=== PATIENT | male | born 1945 | race Asian ===

== ENCOUNTER 2016-11-07 16:16 | Emergency (ER) | payer MEDICARE ==
[~2016-11-07] VITALS: Ht 157.5 cm; Wt 59.0 kg
[2016-11-07 17:03] LABS: Basophils # (auto) 0 uL; Basophils % (auto) 0.4 % (0.0-2.0); Eosinophils # (auto) 0 uL; Eosinophils % (auto) 0.3 % (0.0-7.0); Hematocrit 41.8 % (41.0-53.0); Hemoglobin 14.3 g/dL (13.5-17.5); Lymphocytes # (auto) 1.2 uL; Lymphocytes % (auto) 20.9 % (10.0-50.0); Mean Corpuscular Hemoglobin 29.8 pg (28.0-32.0); Mean Corpuscular Hgb Conc. 34.3 g/dL (32.0-36.0); Mean Corpuscular Volume 86.9 fL (80.0-100.0); Mean Platelet Volume 7.4 fL (7.4-10.4); Monocytes # (auto) 0.4 uL; Monocytes % (auto) 6.3 % (0.0-12.0); Neutrophils % (auto) 72.1 % (37.0-80.0); Platelet Count (auto) 209 10^3/uL (140-450); Red Cell Distribution Width 13.5 % (11.6-16.0); White Blood Cell 5.5 10^3/uL (4.4-10.8)
[2016-11-07 17:27] LABS: Albumin 4.1 g/dL (3.4-5.0); Anion Gap 8 (5-15); Aspartate Aminotransferase 11 U/L (15-37); Blood Urea Nitrogen 11 mg/dL (7-18); Calcium 8.6 mg/dL (8.5-10.1); Carbon Dioxide 27 mmol/L (21-32); Chloride 108 mmol/L (98-107); GFR African American 96 mL/min; GFR Non-African American 79 mL/min; Glucose 258 mg/dL (74-106); Potassium 3.9 mmol/L (3.5-5.1); Sodium 143 mmol/L (136-145)
[2016-11-07 17:32] LABS: Alkaline Phosphatase 66 U/L (45-117); Bilirubin, Total 0.3 mg/dL (0.2-1.0); Total Protein 7.4 g/dL (6.4-8.2)
[2016-11-08] MEDS ORDERED: metroNIDAZOLE 500 MG TAB PO ONE (05:30)
[2016-11-08] MEDS ORDERED: cefTRIAXone 1GM/50ML D5W 50 ML IV ONE (05:30)
[2016-11-08 05:59] LABS: Urine Bilirubin Negative (Negative); Urine Blood Negative /uL (Negative); Urine Color Yellow (Yellow); Urine Glucose Normal (Normal); Urine Ketone Negative (Negative); Urine Mucus FEW (None Seen); Urine Nitrite Negative (Negative); Urine RBC 1 /hpf (0 - 3); Urine Urobilinogen Normal (Negative)
[2016-11-08 06:14] VITALS: BP 131/80
== END 2016-11-08 06:31 | disposition home or self-care (01) ==
LOC: ER 16:17
DX: K52.9 Noninfective gastroenteritis and colitis, unspecified (principal); K80.20 Calculus of gallbladder without cholecystitis without obstruction; E11.9 Type 2 diabetes mellitus without complications; I10 Essential (primary) hypertension; R42 Dizziness and giddiness
CPT/HCPCS: 36415; 70450; 71010; 74176; 80053; 81001; 83690; 84484; 85025; 93005; 96365; 99285; J0696

== ENCOUNTER 2016-12-26 08:14 | Emergency (ER) | payer MEDICARE ==
[~2016-12-26] VITALS: Ht 165.1 cm; Wt 63.5 kg
[2016-12-26 09:01] LABS: Basophils # (auto) 0 uL; Basophils % (auto) 0.3 % (0.0-2.0); CONDITION Y; Eosinophils # (auto) 0 uL; Eosinophils % (auto) 0.2 % (0.0-7.0); Hematocrit 42.9 % (41.0-53.0); Hemoglobin 14.4 g/dL (13.5-17.5); Lymphocytes # (auto) 0.8 uL; Mean Corpuscular Hemoglobin 29.9 pg (28.0-32.0); Mean Corpuscular Hgb Conc. 33.7 g/dL (32.0-36.0); Mean Platelet Volume 7.3 fL (7.4-10.4); Monocytes # (auto) 0.2 uL; Monocytes % (auto) 4.2 % (0.0-12.0); Neutrophils # (auto) 4.8 uL; Neutrophils % (auto) 81.3 % (37.0-80.0); Platelet Count (auto) 203 10^3/uL (140-450); Red Cell Distribution Width 13.2 % (11.6-16.0); White Blood Cell 5.9 10^3/uL (4.4-10.8)
[2016-12-26 09:36] LABS: Albumin 3.8 g/dL (3.4-5.0); Alkaline Phosphatase 73 U/L (45-117); Anion Gap 10 (5-15); Aspartate Aminotransferase 14 U/L (15-37); BUN/Creatinine Ratio 13.2; Bilirubin, Total 0.4 mg/dL (0.2-1.0); Blood Urea Nitrogen 14 mg/dL (7-18); Calcium 8.7 mg/dL (8.5-10.1); Carbon Dioxide 24 mmol/L (21-32); Chloride 104 mmol/L (98-107); GFR African American 89 mL/min; GFR Non-African American 74 mL/min; Glucose 246 mg/dL (74-106); Magnesium 2.3 mg/dL (1.6-2.6); Potassium 4.2 mmol/L (3.5-5.1); Sodium 138 mmol/L (136-145); Total Protein 7.4 g/dL (6.4-8.2)
[2016-12-26] MEDS ORDERED: SODIUM CHLORIDE 0.9% 1,000 ML IV ONE (10:54)
[2016-12-26] MEDS ORDERED: InsuLIN REG 1unit/0.01ml Soln (100units/ml) IV ONE (11:00)
[2016-12-26 13:00] VITALS: BP 145/79
== END 2016-12-26 13:47 | disposition home or self-care (01) ==
LOC: ER 08:14 → EDBD 08:14 → ER 13:47
DX: E11.65 Type 2 diabetes mellitus with hyperglycemia (principal); I10 Essential (primary) hypertension; Z79.4 Long term (current) use of insulin
CPT/HCPCS: 36415; 71020; 80053; 81002; 82962; 83735; 84484; 85025; 93005; 94761; 96360; 99285; J1815; J7030

== ENCOUNTER → 2017-10-15 | Outpatient (CLI) | payer MEDICARE | END | disposition home or self-care (01) | LOC: LAB 08:49 | PROVIDERS: ATTEND Internal Medicine Gastroenterology | DX: R10.9 Unspecified abdominal pain (principal); I12.9 Hypertensive chronic kidney disease with stage 1 through stage 4 chronic kidney disease, or unspecified chronic kidney disease; E11.22 Type 2 diabetes mellitus with diabetic chronic kidney disease; N18.2 Chronic kidney disease, stage 2 (mild); Z79.4 Long term (current) use of insulin | CPT/HCPCS: 87045; 87493; 87899 ==

== ENCOUNTER → 2017-12-18 | Outpatient (CLI) | payer MEDICARE | END | disposition home or self-care (01) | LOC: LAB 09:41 | PROVIDERS: ATTEND Internal Medicine Gastroenterology | DX: R10.9 Unspecified abdominal pain (principal); I12.9 Hypertensive chronic kidney disease with stage 1 through stage 4 chronic kidney disease, or unspecified chronic kidney disease; E11.22 Type 2 diabetes mellitus with diabetic chronic kidney disease; N18.2 Chronic kidney disease, stage 2 (mild) | CPT/HCPCS: 87493 ==

== ENCOUNTER → 2019-08-03 | Outpatient (CLI) | payer MEDICARE ==
[2019-08-03 07:36] LABS: Urine WBC None Seen /hpf (0 - 3)
[2019-08-03 07:38] LABS: Basophils # (auto) 0 uL; Eosinophils # (auto) 0.2 uL; Eosinophils % (auto) 3.5 % (0.0-7.0); Hematocrit 37.4 % (41.0-53.0); Hemoglobin 12.3 g/dL (13.5-17.5); Lymphocytes # (auto) 1.4 uL; Lymphocytes % (auto) 29.9 % (10.0-50.0); Mean Corpuscular Hgb Conc. 32.9 g/dL (32.0-36.0); Mean Corpuscular Volume 91.3 fL (80.0-100.0); Monocytes # (auto) 0.3 uL; Neutrophils # (auto) 2.7 uL; Neutrophils % (auto) 58.6 % (37.0-80.0); Nucleated Red Blood Cells % 0.2 %; Platelet Count (auto) 150 10^3/uL (140-450); Red Cell Distribution Width 13.9 % (11.8-14.3); White Blood Cell 4.5 10^3/uL (4.4-10.8)
[2019-08-03 07:43] LABS: Urine Bacteria NONE SEEN /hpf (None Seen); Urine Blood Negative /uL (Negative); Urine Hyaline Cast MANY /lpf (0 - 2); Urine Mucus FEW (None Seen); Urine Specific Gravity 1.025 (1.001-1.035)
[2019-08-03 08:07] LABS: Albumin 3.5 g/dL (3.4-5.0); Calcium 8.5 mg/dL (8.5-10.1); Potassium 3.9 mmol/L (3.5-5.1)
[2019-08-03 08:12] LABS: BUN/Creatinine Ratio 10.7; Bilirubin, Total 0.3 mg/dL (0.2-1.0)
[2019-08-03 08:27] LABS: Prostate Specific Antigen 0.72 ng/mL (0.0-4.0)
[2019-08-03 08:28] LABS: Free T4 (Free Thyroxine) 0.95 ng/dL (0.89-1.76)
== END | disposition home or self-care (01) ==
LOC: LAB 07:19
PROVIDERS: ATTEND Internal Medicine
DX: E11.9 Type 2 diabetes mellitus without complications (principal); I10 Essential (primary) hypertension; E78.5 Hyperlipidemia, unspecified
CPT/HCPCS: 36415; 80053; 80061; 81001; 82043; 82607; 83036; 84153; 84439; 84443; 85025; 85652

== ENCOUNTER → 2019-09-05 | Outpatient (CLI) | payer MEDICARE | END | disposition home or self-care (01) | LOC: XY 08:24 | PROVIDERS: ATTEND Internal Medicine | DX: Z09 Encounter for follow-up examination after completed treatment for conditions other than malignant neoplasm (principal); I65.23 Occlusion and stenosis of bilateral carotid arteries; Z86.73 Personal history of transient ischemic attack (TIA), and cerebral infarction without residual deficits | CPT/HCPCS: 93886 ==

== ENCOUNTER → 2019-09-05 | Outpatient (CLI) | payer MEDICARE | END | disposition home or self-care (01) | LOC: LAB 08:34 | PROVIDERS: ATTEND Internal Medicine | DX: R59.9 Enlarged lymph nodes, unspecified (principal) | CPT/HCPCS: 87493 ==

== ENCOUNTER → 2019-09-08 | Outpatient (CLI) | payer MEDICARE ==
[2019-09-08 13:45] LABS: Basophils # (auto) 0.1 10 ^3/uL (0-0.2); Basophils % (auto) 0.9 % (0.0-2.0); Eosinophils # (auto) 0.1 10 ^3/uL (0-0.8); Hematocrit 38.4 % (41.0-53.0); Hemoglobin 13.2 g/dL (13.5-17.5); Lymphocytes # (auto) 1.4 10 ^3/uL (0.4-5.4); Lymphocytes % (auto) 22.2 % (10.0-50.0); Mean Corpuscular Hgb Conc. 34.3 g/dL (32.0-36.0); Mean Corpuscular Volume 90.6 fL (80.0-100.0); Monocytes # (auto) 0.3 10 ^3/uL (0-1.3); Monocytes % (auto) 5.7 % (0.0-12.0); Neutrophils # (auto) 4.2 10 ^3/uL (1.6-8.6); Neutrophils % (auto) 69.2 % (37.0-80.0); Nucleated Red Blood Cells % 0.1 %; Platelet Count (auto) 154 10^3/uL (140-450); Red Blood Cells 4.24 10^6/uL (4.5-5.90); Red Cell Distribution Width 13.8 % (11.8-14.3); White Blood Cell 6.1 10^3/uL (4.4-10.8)
[2019-09-08 14:02] LABS: Albumin 3.6 g/dL (3.4-5.0); BUN/Creatinine Ratio 12.1; Calcium 8.7 mg/dL (8.5-10.1); Magnesium 2.2 mg/dL (1.6-2.6); Potassium 3.9 mmol/L (3.5-5.1)
[2019-09-08 14:05] LABS: Bilirubin, Total 0.3 mg/dL (0.2-1.0); Total Protein 7.5 g/dL (6.4-8.2)
== END | disposition home or self-care (01) ==
LOC: LAB 13:19
PROVIDERS: ATTEND Internal Medicine
DX: A04.72 Enterocolitis due to Clostridium difficile, not specified as recurrent (principal); D64.9 Anemia, unspecified; E11.9 Type 2 diabetes mellitus without complications
CPT/HCPCS: 36415; 80053; 83540; 83735; 85025

== ENCOUNTER → 2019-12-02 | Day surgery (SDC) | payer MEDICARE ==
[2019-11-30 11:42] LABS: Basophils # (auto) 0 10 ^3/uL (0-0.2); Basophils % (auto) 0.7 % (0.0-2.0); Eosinophils # (auto) 0.1 10 ^3/uL (0-0.8); Eosinophils % (auto) 2.1 % (0.0-7.0); Hematocrit 38.2 % (41.0-53.0); Hemoglobin 12.7 g/dL (13.5-17.5); Lymphocytes # (auto) 1.3 10 ^3/uL (0.4-5.4); Lymphocytes % (auto) 21.4 % (10.0-50.0); Mean Corpuscular Hemoglobin 29.7 pg (28.0-32.0); Mean Corpuscular Hgb Conc. 33.1 g/dL (32.0-36.0); Mean Corpuscular Volume 89.7 fL (80.0-100.0); Monocytes # (auto) 0.3 10 ^3/uL (0-1.3); Monocytes % (auto) 5.4 % (0.0-12.0); Neutrophils # (auto) 4.1 10 ^3/uL (1.6-8.6); Neutrophils % (auto) 70.4 % (37.0-80.0); Platelet Count (auto) 168 10^3/uL (140-450); Red Blood Cells 4.26 10^6/uL (4.5-5.90); Red Cell Distribution Width 13.4 % (11.8-14.3); White Blood Cell 5.9 10^3/uL (4.4-10.8)
[2019-11-30 11:59] LABS: INR 0.95 (0.9-1.15); Partial Thromboplastin Time 25.9 sec (23.64-32.05)
[~2019-12-02] VITALS: Ht 160 cm; Wt 61.2 kg
[~2019-12-02] MED LIST: AMLO10TA13 PO; FLUMAZENIL 0.1 MG/ML INJ 10ML MDV IV ONE; LISI10TA6 PO; METF-370 PO; METO25TA5 PO; NALOXONE HCL 0.4 MG/ML VIAL ONE; PRAV20TA3 PO; SODIUM CHLORIDE LOCK 10 ML ONE; diphenhdrAMINE HCL 50 MG/1 ML VL ONE
[2019-12-02] MEDS: MIDAZOLAM HCL 5 MG/ML-1ML VIAL ONE ×3 (12:19→12:25)
[2019-12-02] MEDS: fentaNYL CITRATE 100 MCG/2 ML VL ONE ×2 (12:19→12:22)
[2019-12-02 13:13] VITALS: BP 139/75
== END | disposition home or self-care (01) ==
LOC: GI 10:35
PROVIDERS: ATTEND Internal Medicine Gastroenterology
DX: Z12.11 Encounter for screening for malignant neoplasm of colon (principal); D12.3 Benign neoplasm of transverse colon; K57.30 Diverticulosis of large intestine without perforation or abscess without bleeding; K64.9 Unspecified hemorrhoids; A04.72 Enterocolitis due to Clostridium difficile, not specified as recurrent; E11.9 Type 2 diabetes mellitus without complications; Z98.890 Other specified postprocedural states; Z86.010 Personal history of colon polyps; Z11.59 Encounter for screening for other viral diseases
CPT/HCPCS: 36415; 45385; 82962; 85025; 85610; 85730; 88305; J2250; J3010; J7030; U0003; 99152

== ENCOUNTER → 2019-12-15 | Outpatient (CLI) | payer MEDICARE ==
[~2019-12-15] MED LIST changes: -FLUMAZENIL 0.1 MG/ML INJ 10ML MDV IV ONE; -NALOXONE HCL 0.4 MG/ML VIAL ONE; -SODIUM CHLORIDE LOCK 10 ML ONE; -diphenhdrAMINE HCL 50 MG/1 ML VL ONE
[2019-12-15 09:44] LABS: Basophils # (auto) 0 10 ^3/uL (0-0.2); Basophils % (auto) 0.7 % (0.0-2.0); Eosinophils # (auto) 0.1 10 ^3/uL (0-0.8); Eosinophils % (auto) 2.6 % (0.0-7.0); Hematocrit 38.2 % (41.0-53.0); Hemoglobin 12.8 g/dL (13.5-17.5); Lymphocytes # (auto) 1.3 10 ^3/uL (0.4-5.4); Mean Corpuscular Hemoglobin 30.1 pg (28.0-32.0); Mean Corpuscular Hgb Conc. 33.5 g/dL (32.0-36.0); Mean Corpuscular Volume 89.8 fL (80.0-100.0); Monocytes # (auto) 0.3 10 ^3/uL (0-1.3); Monocytes % (auto) 6.9 % (0.0-12.0); Neutrophils # (auto) 3.2 10 ^3/uL (1.6-8.6); Neutrophils % (auto) 63.8 % (37.0-80.0); Platelet Count (auto) 175 10^3/uL (140-450); Red Blood Cells 4.25 10^6/uL (4.5-5.90); Red Cell Distribution Width 13.5 % (11.8-14.3); White Blood Cell 4.9 10^3/uL (4.4-10.8)
== END | disposition home or self-care (01) ==
LOC: LAB 08:28
PROVIDERS: ATTEND Internal Medicine
DX: E11.22 Type 2 diabetes mellitus with diabetic chronic kidney disease (principal); N18.9 Chronic kidney disease, unspecified; D64.9 Anemia, unspecified
CPT/HCPCS: 36415; 82607; 83036; 83540; 85025

== ENCOUNTER → 2020-03-28 | Day surgery (SDC) | payer MEDICARE ==
[2020-03-22 10:19] LABS: Basophils # (auto) 0 10 ^3/uL (0-0.2); Basophils % (auto) 0.7 % (0.0-2.0); Eosinophils # (auto) 0.1 10 ^3/uL (0-0.8); Hematocrit 36.1 % (41.0-53.0); Hemoglobin 12.4 g/dL (13.5-17.5); Lymphocytes # (auto) 1.2 10 ^3/uL (0.4-5.4); Lymphocytes % (auto) 27.3 % (10.0-50.0); Mean Corpuscular Hemoglobin 30.7 pg (28.0-32.0); Mean Corpuscular Hgb Conc. 34.3 g/dL (32.0-36.0); Mean Corpuscular Volume 89.3 fL (80.0-100.0); Monocytes # (auto) 0.3 10 ^3/uL (0-1.3); Monocytes % (auto) 5.8 % (0.0-12.0); Neutrophils # (auto) 2.8 10 ^3/uL (1.6-8.6); Neutrophils % (auto) 64.2 % (37.0-80.0); Platelet Count (auto) 183 10^3/uL (140-450); Red Blood Cells 4.05 10^6/uL (4.5-5.90); Red Cell Distribution Width 14.2 % (11.8-14.3); White Blood Cell 4.3 10^3/uL (4.4-10.8)
[2020-03-22 10:31] LABS: INR 0.94 (0.9-1.15); Partial Thromboplastin Time 25.9 sec (23.0-31.2)
[~2020-03-28] VITALS: Ht 154.9 cm; Wt 61.2 kg
[~2020-03-28] MED LIST changes: +ASPI-543 PO; +CHOL20009 PO; +CLON0.5T10 PO; +ESCI5TAB PO; +FERR-7 PO; +GLIP-110 PO; +LIDOCAINE VISCOUS 2% 15ML UD ONE; +LISI-648 PO; -LISI10TA6 PO; +MISC4CAP PO; +PIOG1TAB36 PO; +SODIUM CHLORIDE LOCK 10 ML ONE; +diphenhdrAMINE HCL 50 MG/1 ML VL ONE
[2020-03-28] MEDS: fentaNYL CITRATE 100 MCG/2 ML VL ONE ×3 (15:29→15:34)
[2020-03-28] MEDS: MIDAZOLAM HCL 5 MG/ML-1ML VIAL ONE ×3 (15:29→15:34)
[2020-03-29 16:10] VITALS: BP 117/60
== END | disposition home or self-care (01) ==
LOC: GI 13:22
PROVIDERS: ATTEND Internal Medicine Gastroenterology
DX: R10.13 Epigastric pain (principal); K29.70 Gastritis, unspecified, without bleeding; K31.89 Other diseases of stomach and duodenum; K25.9 Gastric ulcer, unspecified as acute or chronic, without hemorrhage or perforation; K44.9 Diaphragmatic hernia without obstruction or gangrene; K22.10 Ulcer of esophagus without bleeding; K31.7 Polyp of stomach and duodenum; D64.9 Anemia, unspecified; E11.9 Type 2 diabetes mellitus without complications; Z98.890 Other specified postprocedural states; Z20.828 Contact with and (suspected) exposure to other viral communicable diseases
CPT/HCPCS: 36415; 43239; 82962; 85025; 85610; 85730; 88305; 88342; J2250; J3010; J7030; U0003

== ENCOUNTER → 2020-03-30 | Outpatient (CLI) | payer MEDICARE ==
[~2020-03-30] MED LIST changes: -LIDOCAINE VISCOUS 2% 15ML UD ONE; -SODIUM CHLORIDE LOCK 10 ML ONE; -diphenhdrAMINE HCL 50 MG/1 ML VL ONE
[2020-03-30 08:12] LABS: Basophils # (auto) 0 10 ^3/uL (0-0.2); Basophils % (auto) 0.8 % (0.0-2.0); Eosinophils # (auto) 0.1 10 ^3/uL (0-0.8); Eosinophils % (auto) 2.5 % (0.0-7.0); Hematocrit 38.1 % (41.0-53.0); Hemoglobin 12.7 g/dL (13.5-17.5); Lymphocytes # (auto) 1.4 10 ^3/uL (0.4-5.4); Lymphocytes % (auto) 31.4 % (10.0-50.0); Mean Corpuscular Hemoglobin 29.9 pg (28.0-32.0); Mean Corpuscular Hgb Conc. 33.4 g/dL (32.0-36.0); Mean Corpuscular Volume 89.6 fL (80.0-100.0); Monocytes # (auto) 0.3 10 ^3/uL (0-1.3); Monocytes % (auto) 5.8 % (0.0-12.0); Neutrophils # (auto) 2.7 10 ^3/uL (1.6-8.6); Neutrophils % (auto) 59.5 % (37.0-80.0); Nucleated Red Blood Cells % 0.1 %; Platelet Count (auto) 176 10^3/uL (140-450); Red Blood Cells 4.25 10^6/uL (4.5-5.90); Red Cell Distribution Width 14.3 % (11.8-14.3); White Blood Cell 4.5 10^3/uL (4.4-10.8)
[2020-03-30 08:42] LABS: Albumin 3.7 g/dL (3.4-5.0); Calcium 8.7 mg/dL (8.5-10.1); Potassium 3.9 mmol/L (3.5-5.1)
[2020-03-30 08:46] LABS: BUN/Creatinine Ratio 15.7; Bilirubin, Total 0.3 mg/dL (0.2-1.0); Total Protein 7.2 g/dL (6.4-8.2)
== END | disposition home or self-care (01) ==
LOC: LAB 07:54
PROVIDERS: ATTEND Internal Medicine
DX: E11.9 Type 2 diabetes mellitus without complications (principal); D64.9 Anemia, unspecified; E78.1 Pure hyperglyceridemia
CPT/HCPCS: 36415; 80053; 82607; 83036; 83540; 84478; 85025

== ENCOUNTER → 2020-08-02 | Outpatient (CLI) | payer MEDICARE ==
[~2020-08-02] MED LIST changes: +AMLO-496 PO; -AMLO10TA13 PO
[2020-08-02 08:44] LABS: Urine Bacteria NONE SEEN /hpf (None Seen); Urine Blood Negative /uL (Negative); Urine Hyaline Cast FEW /lpf (0 - 2); Urine Mucus FEW (None Seen); Urine Specific Gravity 1.025 (1.001-1.035); Urine WBC <1 /hpf (0 - 3)
[2020-08-02 08:45] LABS: Basophils # (auto) 0 10 ^3/uL (0-0.2); Basophils % (auto) 0.7 % (0.0-2.0); Eosinophils # (auto) 0.1 10 ^3/uL (0-0.8); Eosinophils % (auto) 2.2 % (0.0-7.0); Hematocrit 39.3 % (41.0-53.0); Hemoglobin 13.5 g/dL (13.5-17.5); Lymphocytes # (auto) 1.3 10 ^3/uL (0.4-5.4); Lymphocytes % (auto) 28.8 % (10.0-50.0); Mean Corpuscular Hemoglobin 30.4 pg (28.0-32.0); Mean Corpuscular Hgb Conc. 34.3 g/dL (32.0-36.0); Mean Corpuscular Volume 88.8 fL (80.0-100.0); Monocytes # (auto) 0.3 10 ^3/uL (0-1.3); Monocytes % (auto) 6.4 % (0.0-12.0); Neutrophils # (auto) 2.8 10 ^3/uL (1.6-8.6); Neutrophils % (auto) 61.9 % (37.0-80.0); Nucleated Red Blood Cells % 0.1 %; Platelet Count (auto) 158 10^3/uL (140-450); Red Blood Cells 4.43 10^6/uL (4.5-5.90); Red Cell Distribution Width 13.9 % (11.8-14.3); White Blood Cell 4.5 10^3/uL (4.4-10.8)
[2020-08-02 09:10] LABS: Calcium 8.6 mg/dL (8.5-10.1); Potassium 3.4 mmol/L (3.5-5.1)
[2020-08-02 09:22] LABS: Albumin 3.6 g/dL (3.4-5.0); BUN/Creatinine Ratio 14.7; Bilirubin, Total 0.5 mg/dL (0.2-1.0); Total Protein 7.5 g/dL (6.4-8.2)
[2020-08-02 09:25] LABS: Free T4 (Free Thyroxine) 1.06 ng/dL (0.89-1.76)
[2020-08-02 09:27] LABS: Prostate Specific Antigen 0.88 ng/mL (0.0-4.0)
== END | disposition home or self-care (01) ==
LOC: LAB 08:03
PROVIDERS: ATTEND Internal Medicine
DX: Z12.5 Encounter for screening for malignant neoplasm of prostate (principal); E11.9 Type 2 diabetes mellitus without complications; I10 Essential (primary) hypertension
CPT/HCPCS: 36415; 80053; 80061; 81001; 82043; 82607; 83036; 84153; 84439; 84443; 85025; 85652; 87493

== ENCOUNTER → 2020-08-27 | Outpatient (CLI) | payer MEDICARE | END | disposition home or self-care (01) | LOC: LAB 12:23 | PROVIDERS: ATTEND Internal Medicine Gastroenterology | DX: A04.71 Enterocolitis due to Clostridium difficile, recurrent (principal) | CPT/HCPCS: 87493 ==

== ENCOUNTER → 2020-10-01 | Outpatient (CLI) | payer MEDICARE | END | disposition home or self-care (01) | LOC: LAB 09:20 | PROVIDERS: ATTEND Internal Medicine | DX: E87.6 Hypokalemia (principal); R53.83 Other fatigue; Z86.39 Personal history of other endocrine, nutritional and metabolic disease | CPT/HCPCS: 36415; 83540; 84132 ==

== ENCOUNTER → 2021-01-01 | Outpatient (CLI) | payer MEDICARE ==
[~2021-01-01] MED LIST changes: -LISI-648 PO; +LISI-716 PO
[2021-01-01 09:01] LABS: Albumin 3.7 g/dL (3.4-5.0); Calcium 8.5 mg/dL (8.5-10.1); Potassium 3.5 mmol/L (3.5-5.1)
[2021-01-01 09:07] LABS: BUN/Creatinine Ratio 11.9; Bilirubin, Total 0.4 mg/dL (0.2-1.0); Total Protein 7.2 g/dL (6.4-8.2)
== END | disposition home or self-care (01) ==
LOC: LAB 07:46
PROVIDERS: ATTEND Internal Medicine
DX: E11.9 Type 2 diabetes mellitus without complications (principal)
CPT/HCPCS: 36415; 80053; 83036

== ENCOUNTER 2021-04-08 18:45 | Emergency (ER) | payer MEDICARE ==
[~2021-04-08] VITALS: Ht 162.6 cm; Wt 61.2 kg
[2021-04-08 19:27] LABS: Basophils # (auto) 0 10 ^3/uL (0-0.2); Basophils % (auto) 0.5 % (0.0-2.0); Eosinophils # (auto) 0.1 10 ^3/uL (0-0.8); Eosinophils % (auto) 1.5 % (0.0-7.0); Hematocrit 42.1 % (41.0-53.0); Hemoglobin 14.2 g/dL (13.5-17.5); Lymphocytes # (auto) 1.2 10 ^3/uL (0.4-5.4); Lymphocytes % (auto) 27.2 % (10.0-50.0); Mean Corpuscular Hemoglobin 31.3 pg (28.0-32.0); Mean Corpuscular Hgb Conc. 33.9 g/dL (32.0-36.0); Mean Corpuscular Volume 92.5 fL (80.0-100.0); Monocytes # (auto) 0.3 10 ^3/uL (0-1.3); Monocytes % (auto) 6.2 % (0.0-12.0); Neutrophils # (auto) 2.8 10 ^3/uL (1.6-8.6); Neutrophils % (auto) 64.6 % (37.0-80.0); Nucleated Red Blood Cells % 0.1 %; Red Blood Cells 4.55 10^6/uL (4.5-5.90); Red Cell Distribution Width 14.1 % (11.8-14.3); White Blood Cell 4.4 10^3/uL (4.4-10.8)
[2021-04-08] MEDS ORDERED: MECLIZINE HCL 25 MG TAB PO ONE (20:15)
[2021-04-08] MEDS ORDERED: SODIUM CHLORIDE 0.9% 1,000 ML IV ONE (20:15)
[2021-04-08 20:41] LABS: Alanine Aminotransferase 27 U/L (16-61); Albumin 3.5 g/dL (3.4-5.0); Anion Gap 2 (5-15); Blood Urea Nitrogen 22 mg/dL (7-18); Calcium 8.8 mg/dL (8.5-10.1); Carbon Dioxide 27 mmol/L (21-32); Chloride 110 mmol/L (98-107); Glucose 183 mg/dL (74-106); Potassium 4.4 mmol/L (3.5-5.1); Sodium 139 mmol/L (136-145)
[2021-04-08 20:46] LABS: Alkaline Phosphatase 62 U/L (45-117); Aspartate Aminotransferase 19 U/L (15-37); BUN/Creatinine Ratio 15.5; Bilirubin, Total 0.3 mg/dL (0.2-1.0); GFR African American 63 mL/min; GFR Non-African American 52 mL/min; Total Protein 7.2 g/dL (6.4-8.2)
[2021-04-09 03:23] VITALS: BP 147/65
== END 2021-04-09 03:57 | disposition home or self-care (01) ==
LOC: ER 18:48
DX: R42 Dizziness and giddiness (principal); R51.9 Headache, unspecified; E11.9 Type 2 diabetes mellitus without complications; I10 Essential (primary) hypertension; E78.5 Hyperlipidemia, unspecified; F41.9 Anxiety disorder, unspecified; H54.40 Blindness, one eye, unspecified eye; Z79.84 Long term (current) use of oral hypoglycemic drugs; Z79.82 Long term (current) use of aspirin; Z79.899 Other long term (current) drug therapy; Z86.73 Personal history of transient ischemic attack (TIA), and cerebral infarction without residual deficits
CPT/HCPCS: 36415; 70450; 80053; 83880; 84484; 85025; 93005; 96360; 99285; J7030; J8597

== ENCOUNTER 2021-04-11 13:30 | Inpatient (IN) | payer MEDICARE ==
[~2021-04-11] VITALS: Ht 162.6 cm; Wt 64.2 kg
[2021-04-11] MEDS ORDERED: LORazepam 2MG/ML-1ML VIAL IV ONE (13:45)
[2021-04-11 14:09] LABS: Basophils # (auto) 0 10 ^3/uL (0-0.2); Basophils % (auto) 0.5 % (0.0-2.0); Eosinophils # (auto) 0 10 ^3/uL (0-0.8); Eosinophils % (auto) 0.9 % (0.0-7.0); Hematocrit 39.4 % (41.0-53.0); Lymphocytes # (auto) 0.7 10 ^3/uL (0.4-5.4); Lymphocytes % (auto) 15.4 % (10.0-50.0); Mean Corpuscular Hemoglobin 30.6 pg (28.0-32.0); Mean Corpuscular Volume 92.7 fL (80.0-100.0); Monocytes # (auto) 0.2 10 ^3/uL (0-1.3); Monocytes % (auto) 5.1 % (0.0-12.0); Neutrophils # (auto) 3.5 10 ^3/uL (1.6-8.6); Neutrophils % (auto) 78.1 % (37.0-80.0); Nucleated Red Blood Cells % 0.1 %; Red Blood Cells 4.25 10^6/uL (4.5-5.90); Red Cell Distribution Width 13.9 % (11.8-14.3); White Blood Cell 4.5 10^3/uL (4.4-10.8)
[2021-04-11 14:27] LABS: Albumin 3.1 g/dL (3.4-5.0); Anion Gap 8 (5-15); Blood Urea Nitrogen 17 mg/dL (7-18); Calcium 8.5 mg/dL (8.5-10.1); Carbon Dioxide 24 mmol/L (21-32); Chloride 108 mmol/L (98-107); Glucose 302 mg/dL (74-106); Sodium 140 mmol/L (136-145)
[2021-04-11 14:30] LABS: Alanine Aminotransferase 23 U/L (16-61); Aspartate Aminotransferase 17 U/L (15-37); BUN/Creatinine Ratio 11.4; GFR African American 59 mL/min; GFR Non-African American 49 mL/min
[2021-04-11 14:35] LABS: Alkaline Phosphatase 57 U/L (45-117); Bilirubin, Total 0.3 mg/dL (0.2-1.0); Total Protein 6.6 g/dL (6.4-8.2)
[2021-04-11] MEDS ORDERED: MORPHINE SULFATE INJECTION 2 MG/ML SYRG IV PRN ×3 (16:45)
[2021-04-11] MEDS ORDERED: ACETAMINOPHEN 325 MG TAB PO PRN (16:45)
[2021-04-11] MEDS ORDERED: ONDANSETRON HCL 4 MG/2 ML VIAL IV PRN (16:45)
[2021-04-11] MEDS ORDERED: DOCUSATE SOD 100 MG CAP PO PRN (16:45)
[2021-04-11] MEDS ORDERED: hydrALAZINE HCL 20 MG/ML VL IV PRN (16:45)
[2021-04-11] MEDS ORDERED: LACTATED RINGER'S 1,000 ML IV ONE (16:45)
[2021-04-11] MEDS ORDERED: BENAZEPRIL HCL 10 MG TAB PO ONE (16:45)
[2021-04-11] MEDS ORDERED: NITROGLYCERIN 0.4 MG SL TAB SL PRN ×2 (16:45)
[2021-04-11] MEDS ORDERED: NIFEdipine ER 30 MG TAB PO ONE (16:45)
[2021-04-11] MEDS ORDERED: MECLIZINE HCL 25 MG TAB PO ONE (16:45)
[2021-04-11] MEDS ORDERED: DEXTROSE (50%) 50ML SYRG IV PRN (16:45)
[2021-04-11] MEDS ORDERED: ALUM & MAG HYDROX-SIMETH LIQ(MAALOX) 30 ML PO PRN (16:45)
[2021-04-11] MEDS ORDERED: HYDROcodone-ACET 5/325MG TAB PO PRN (16:45)
[2021-04-11] MEDS ORDERED: CITALOPRAM HYDROBR 20 MG TAB PO ONE (17:00)
[2021-04-11] MEDS ORDERED: METOPROLOL SUCCINATE XL 50 MG TAB PO ONE (17:00)
[2021-04-11 17:13] LABS: Urine WBC None Seen /hpf (0 - 3)
[2021-04-11] MEDS ORDERED: SUCRALFATE 1 GM/10 ML ORAL SUSP PO ONE (17:15)
[2021-04-11] MEDS ORDERED: PANTOPRAZOLE 40 MG/10 ML VIAL INJ IV ONE (17:15)
[2021-04-11 17:27] LABS: Urine Bacteria NONE SEEN /hpf (None Seen); Urine Blood Negative /uL (Negative); Urine Mucus FEW (None Seen); Urine Specific Gravity 1.013 (1.001-1.035)
[2021-04-11 17:45] LABS: Alcohol, Urine < 3.0 mg/dL (0-10); Amphetamine Screen, Urine NEGATIVE (NEGATIVE); Barbiturate Scree,Urine NEGATIVE (NEGATIVE); Benzodiazephine Screen, Urine NEGATIVE (NEGATIVE); Cannabinoid Screen, Urine NEGATIVE (NEGATIVE); Cocaine Screen, Urine NEGATIVE (NEGATIVE)
[2021-04-11 17:47] LABS: Opiate Scree,Urine NEGATIVE (NEGATIVE); Phencyclidine Screen, Urine NEGATIVE (NEGATIVE)
[2021-04-11] MEDS: ACCU-CHEK COMFORT CURVE STRIP VI SCH ×2 (18:12→23:08)
[2021-04-11] MEDS: SODIUM CHLORIDE 0.9% 1,000 ML IV SCH (18:50)
[2021-04-11] MEDS: InsuLIN REG 1unit/0.01ml Soln (100units/ml) SC SCH ×2 (19:18→23:10)
[2021-04-11] MEDS ORDERED: MECLIZINE HCL 25 MG TAB PO PRN (22:45)
[2021-04-11] MEDS: PRAVASTATIN SODIUM 20 MG TAB PO SCH (23:07)
[2021-04-11] MEDS: ASPirin-EC 81 mg tab PO SCH (23:07)
[2021-04-11] MEDS: SUCRALFATE 1 GM/10 ML ORAL SUSP PO SCH (23:08)
[2021-04-12 05:00] VITALS: BP 117/78
[2021-04-12] MEDS: SODIUM CHLORIDE 0.9% 1,000 ML IV SCH ×3 (06:05→15:15)
[2021-04-12] MEDS: InsuLIN REG 1unit/0.01ml Soln (100units/ml) SC SCH ×4 (06:36→22:40)
[2021-04-12] MEDS: SUCRALFATE 1 GM/10 ML ORAL SUSP PO SCH ×4 (06:36→21:39)
[2021-04-12] MEDS: ACCU-CHEK COMFORT CURVE STRIP VI SCH ×4 (06:36→21:40)
[2021-04-12 09:00] VITALS: BP 139/60
[2021-04-12] MEDS: NIFEdipine ER 30 MG TAB PO SCH (10:00)
[2021-04-12] MEDS: PANTOPRAZOLE 40 MG/10 ML VIAL INJ IV SCH (10:00)
[2021-04-12] MEDS: METOPROLOL SUCCINATE XL 50 MG TAB PO SCH (10:00)
[2021-04-12] MEDS: CITALOPRAM HYDROBR 20 MG TAB PO SCH (10:00)
[2021-04-12] MEDS: ENOXAPARIN SOD 40 MG/0.4 ML SYRINGE SC SCH (10:00)
[2021-04-12] MEDS: BENAZEPRIL HCL 10 MG TAB PO SCH (10:00)
[2021-04-12 13:00] VITALS: BP 143/68
[2021-04-12 17:00] VITALS: BP 137/71
[2021-04-12] MEDS ORDERED: ALPRAZolam 0.25 MG TAB PO PRN (18:00)
[2021-04-12] MEDS ORDERED: ALPRAZolam 0.25 MG TAB PO ONE (18:00)
[2021-04-12] MEDS: LORazepam 0.5 MG TAB PO PRN (18:30)
[2021-04-12] MEDS: clonazePAM 0.5 MG TAB PO SCH (21:39)
[2021-04-12] MEDS: PRAVASTATIN SODIUM 20 MG TAB PO SCH (21:40)
[2021-04-12] MEDS: ASPirin-EC 81 mg tab PO SCH (21:40)
[2021-04-12 22:59] VITALS: BP 125/61
[2021-04-13 05:22] VITALS: BP 121/73
[2021-04-13] MEDS: LORazepam 0.5 MG TAB PO PRN (06:08)
[2021-04-13 06:17] LABS: Basophils # (auto) 0 10 ^3/uL (0-0.2); Basophils % (auto) 0.7 % (0.0-2.0); Eosinophils # (auto) 0.2 10 ^3/uL (0-0.8); Eosinophils % (auto) 3.4 % (0.0-7.0); Hematocrit 38.6 % (41.0-53.0); Lymphocytes # (auto) 1.3 10 ^3/uL (0.4-5.4); Lymphocytes % (auto) 27.7 % (10.0-50.0); Mean Corpuscular Hemoglobin 31.1 pg (28.0-32.0); Mean Corpuscular Hgb Conc. 33.8 g/dL (32.0-36.0); Mean Corpuscular Volume 92.2 fL (80.0-100.0); Monocytes # (auto) 0.3 10 ^3/uL (0-1.3); Monocytes % (auto) 6.8 % (0.0-12.0); Neutrophils % (auto) 61.4 % (37.0-80.0); Nucleated Red Blood Cells % 0.1 %; Red Blood Cells 4.18 10^6/uL (4.5-5.90); Red Cell Distribution Width 14.3 % (11.8-14.3); White Blood Cell 4.9 10^3/uL (4.4-10.8)
[2021-04-13 06:35] LABS: BUN/Creatinine Ratio 12.9; Potassium 3.5 mmol/L (3.5-5.1)
[2021-04-13] MEDS: InsuLIN REG 1unit/0.01ml Soln (100units/ml) SC SCH ×2 (07:00→12:05)
[2021-04-13] MEDS: SUCRALFATE 1 GM/10 ML ORAL SUSP PO SCH ×2 (07:00→12:04)
[2021-04-13] MEDS: ACCU-CHEK COMFORT CURVE STRIP VI SCH ×2 (07:00→12:04)
[2021-04-13 09:00] VITALS: BP 136/67
[2021-04-13] MEDS: ENOXAPARIN SOD 40 MG/0.4 ML SYRINGE SC SCH (10:00)
[2021-04-13] MEDS: PANTOPRAZOLE 40 MG/10 ML VIAL INJ IV SCH (10:00)
[2021-04-13] MEDS: METOPROLOL SUCCINATE XL 50 MG TAB PO SCH (10:03)
[2021-04-13] MEDS: NIFEdipine ER 30 MG TAB PO SCH (10:04)
[2021-04-13] MEDS: clonazePAM 0.5 MG TAB PO SCH (10:04)
[2021-04-13] MEDS: BENAZEPRIL HCL 10 MG TAB PO SCH (10:05)
[2021-04-13] MEDS: CITALOPRAM HYDROBR 20 MG TAB PO SCH (10:05)
[2021-04-13 12:19] VITALS: BP 126/71
== END 2021-04-13 17:00 | disposition home or self-care (01) | DRG 149 ==
LOC: EDBD 13:30 → ER 13:30 → TELE 16:35 → TELE-CENTR 20:41
PROVIDERS: ADMIT Hospitalist; ATTEND Internal Medicine
DX: H81.10 Benign paroxysmal vertigo, unspecified ear (principal); N17.0 Acute kidney failure with tubular necrosis; R53.1 Weakness; I13.10 Hypertensive heart and chronic kidney disease without heart failure, with stage 1 through stage 4 chronic kidney disease, or unspecified chronic kidney disease; N18.31 Chronic kidney disease, stage 3a; D69.6 Thrombocytopenia, unspecified; K21.9 Gastro-esophageal reflux disease without esophagitis; E66.9 Obesity, unspecified; E11.22 Type 2 diabetes mellitus with diabetic chronic kidney disease; F32.A Depression, unspecified; Z20.822 Contact with and (suspected) exposure to COVID-19; E78.5 Hyperlipidemia, unspecified; F41.1 Generalized anxiety disorder; I65.21 Occlusion and stenosis of right carotid artery; Z79.84 Long term (current) use of oral hypoglycemic drugs; Z79.899 Other long term (current) drug therapy; Z82.3 Family history of stroke; Z82.49 Family history of ischemic heart disease and other diseases of the circulatory system; Z83.3 Family history of diabetes mellitus; Z86.73 Personal history of transient ischemic attack (TIA), and cerebral infarction without residual deficits; Z68.23 Body mass index [BMI] 23.0-23.9, adult
CPT/HCPCS: 36415; 70450; 70551; 80048; 80053; 80061; 80307; 81001; 82306; 82962; 83036; 83735; 83880; 84443; 84484; 85025; 87040; 87086; 87426; 93005; 93306; 93886; 96360; 96361; 96374; 97163; C9113; G0378; J1815

== ENCOUNTER 2021-04-26 15:46 | Emergency (ER) | payer MEDICARE ==
[~2021-04-26] VITALS: Ht 162.6 cm; Wt 61.2 kg
[2021-04-26] MEDS ORDERED: SODIUM CHLORIDE 0.9% 500 ML IV ONE (16:45)
[2021-04-26 20:10] VITALS: BP 146/90
[2021-04-26 20:49] LABS: Basophils # (auto) 0 10 ^3/uL (0-0.2); Eosinophils # (auto) 0.1 10 ^3/uL (0-0.8); Eosinophils % (auto) 1.5 % (0.0-7.0); Hematocrit 42.4 % (41.0-53.0); Hemoglobin 14.2 g/dL (13.5-17.5); Lymphocytes # (auto) 1.2 10 ^3/uL (0.4-5.4); Lymphocytes % (auto) 27.7 % (10.0-50.0); Mean Corpuscular Hgb Conc. 33.5 g/dL (32.0-36.0); Mean Corpuscular Volume 92.6 fL (80.0-100.0); Monocytes # (auto) 0.3 10 ^3/uL (0-1.3); Monocytes % (auto) 6.5 % (0.0-12.0); Neutrophils # (auto) 2.6 10 ^3/uL (1.6-8.6); Neutrophils % (auto) 63.3 % (37.0-80.0); Nucleated Red Blood Cells % 0.3 %; Red Blood Cells 4.58 10^6/uL (4.5-5.90); Red Cell Distribution Width 14.4 % (11.8-14.3); White Blood Cell 4.2 10^3/uL (4.4-10.8)
[2021-04-26 21:04] LABS: Albumin 3.4 g/dL (3.4-5.0); BUN/Creatinine Ratio 15.5; Calcium 8.6 mg/dL (8.5-10.1); Magnesium 2.5 mg/dL (1.6-2.6); Potassium 3.7 mmol/L (3.5-5.1)
[2021-04-26 21:07] LABS: Bilirubin, Total 0.4 mg/dL (0.2-1.0); Total Protein 7.5 g/dL (6.4-8.2)
== END 2021-04-26 22:30 | disposition home or self-care (01) ==
LOC: ER 15:46 → EDBD 15:46 → ER 22:30
DX: R53.1 Weakness (principal); I10 Essential (primary) hypertension; E11.9 Type 2 diabetes mellitus without complications; E78.5 Hyperlipidemia, unspecified; Z86.73 Personal history of transient ischemic attack (TIA), and cerebral infarction without residual deficits; Z86.2 Personal history of diseases of the blood and blood-forming organs and certain disorders involving the immune mechanism; Z79.82 Long term (current) use of aspirin; Z79.899 Other long term (current) drug therapy
CPT/HCPCS: 36415; 71045; 80053; 83735; 85025; 93005; 99285; J7040

== ENCOUNTER → 2021-08-27 | Outpatient (CLI) | payer MEDICARE ==
[~2021-08-27] MED LIST changes: +SERT25TA84 PO
== END | disposition home or self-care (01) ==
LOC: LAB 08:36
PROVIDERS: ATTEND Internal Medicine Gastroenterology
DX: A04.72 Enterocolitis due to Clostridium difficile, not specified as recurrent (principal)
CPT/HCPCS: 87493

== ENCOUNTER 2021-08-29 17:22 | Inpatient (IN) | payer MEDICARE ==
[~2021-08-29] VITALS: Ht 162.6 cm; Wt 62.7 kg
[~2021-08-29 17:22] MED LIST changes: -SERT25TA84 PO
[2021-08-29] MEDS ORDERED: LORazepam 2MG/ML-1ML VIAL IV ONE (17:30)
[2021-08-29] MEDS ORDERED: SODIUM CHLORIDE 0.9% 1,000 ML IV ONE (17:30)
[2021-08-29 17:59] LABS: Basophils # (auto) 0 10 ^3/uL (0-0.2); Basophils % (auto) 0.7 % (0.0-2.0); Eosinophils # (auto) 0.1 10 ^3/uL (0-0.8); Eosinophils % (auto) 1.7 % (0.0-7.0); Hematocrit 39.7 % (41.0-53.0); Hemoglobin 13.5 g/dL (13.5-17.5); Lymphocytes % (auto) 23.3 % (10.0-50.0); Mean Corpuscular Hemoglobin 31.3 pg (28.0-32.0); Mean Corpuscular Volume 91.8 fL (80.0-100.0); Monocytes # (auto) 0.3 10 ^3/uL (0-1.3); Monocytes % (auto) 7.1 % (0.0-12.0); Neutrophils # (auto) 2.8 10 ^3/uL (1.6-8.6); Neutrophils % (auto) 67.2 % (37.0-80.0); Red Blood Cells 4.32 10^6/uL (4.5-5.90); Red Cell Distribution Width 13.8 % (11.8-14.3); White Blood Cell 4.2 10^3/uL (4.4-10.8)
[2021-08-29 18:11] LABS: Albumin 3.4 g/dL (3.4-5.0); Calcium 8.6 mg/dL (8.5-10.1); Potassium 3.7 mmol/L (3.5-5.1)
[2021-08-29 18:17] LABS: BUN/Creatinine Ratio 14.9; Bilirubin, Total 0.2 mg/dL (0.2-1.0)
[2021-08-29] MEDS ORDERED: DEXTROSE (50%) 50ML SYRG IV PRN (21:45)
[2021-08-29] MEDS ORDERED: LORazepam 0.5 MG TAB PO PRN (21:45)
[2021-08-29] MEDS: ACCU-CHEK COMFORT CURVE STRIP VI SCH (22:15)
[2021-08-29] MEDS: InsuLIN REG 1unit/0.01ml Soln (100units/ml) SC SCH (22:16)
[2021-08-29 23:19] VITALS: BP 122/69
[2021-08-30 01:05] LABS: Protein, Urine < 5.0 mg/dL (0.0-11.9); Sodium Urine 128 mmol/L (40-220)
[2021-08-30 01:14] LABS: Creatinine, Urine 12 mg/dL (30.0-125.0)
[2021-08-30 05:19] LABS: Basophils # (auto) 0 10 ^3/uL (0-0.2); Basophils % (auto) 0.7 % (0.0-2.0); Eosinophils # (auto) 0.1 10 ^3/uL (0-0.8); Eosinophils % (auto) 2.3 % (0.0-7.0); Hematocrit 37.5 % (41.0-53.0); Hemoglobin 12.7 g/dL (13.5-17.5); Lymphocytes # (auto) 0.8 10 ^3/uL (0.4-5.4); Mean Corpuscular Hemoglobin 31.1 pg (28.0-32.0); Mean Corpuscular Hgb Conc. 33.9 g/dL (32.0-36.0); Mean Corpuscular Volume 91.6 fL (80.0-100.0); Monocytes # (auto) 0.3 10 ^3/uL (0-1.3); Monocytes % (auto) 7.6 % (0.0-12.0); Neutrophils # (auto) 3.2 10 ^3/uL (1.6-8.6); Neutrophils % (auto) 71.4 % (37.0-80.0); Red Blood Cells 4.09 10^6/uL (4.5-5.90); Red Cell Distribution Width 13.8 % (11.8-14.3); White Blood Cell 4.5 10^3/uL (4.4-10.8)
[2021-08-30 05:43] LABS: BUN/Creatinine Ratio 15.2; Calcium 8.4 mg/dL (8.5-10.1); Potassium 3.2 mmol/L (3.5-5.1)
[2021-08-30] MEDS: FERROUS SULFATE 325mg EC TAB PO SCH ×3 (05:43→22:00)
[2021-08-30 05:53] VITALS: BP 121/62
[2021-08-30] MEDS: InsuLIN REG 1unit/0.01ml Soln (100units/ml) SC SCH ×4 (06:34→22:00)
[2021-08-30] MEDS: ACCU-CHEK COMFORT CURVE STRIP VI SCH ×4 (06:35→22:06)
[2021-08-30 08:00] VITALS: BP 119/67
[2021-08-30] MEDS: METOPROLOL TARTRATE 25 MG TAB PO SCH ×2 (10:00→22:00)
[2021-08-30] MEDS: amLODIPine BESYLATE 5 MG TAB PO SCH (10:00)
[2021-08-30] MEDS: ENOXAPARIN SOD 40 MG/0.4 ML SYRINGE SC SCH (10:00)
[2021-08-30] MEDS: [UNRECOGNIZED DRUG - OTHER] PO SCH (10:00)
[2021-08-30] MEDS ORDERED: BIFIDOBACTERIUM INFANTIS PO SCH (10:00)
[2021-08-30] MEDS: PIOGLITAZONE HYDROCHLORIDE 30 MG TAB PO SCH (10:00)
[2021-08-30] MEDS: CHOLECALCIFEROL (VITD3) 2,000 UNIT CAP/TAB PO SCH (10:00)
[2021-08-30] MEDS: GLIPIZIDE 5 MG PO SCH (10:00)
[2021-08-30] MEDS: PRAVASTATIN SODIUM 20 MG TAB PO SCH (10:00)
[2021-08-30] MEDS ORDERED: GLIPIZIDE 5 MG PO SCH (10:00)
[2021-08-30] MEDS: CITALOPRAM HYDROBR 20 MG TAB PO SCH (10:00)
[2021-08-30 12:00] VITALS: BP 146/70
[2021-08-30 16:00] VITALS: BP 140/69
[2021-08-30 20:00] VITALS: BP 146/70
[2021-08-30] MEDS: LORazepam 0.5 MG TAB PO PRN (20:00)
[2021-08-30 22:00] VITALS: BP 119/57
[2021-08-31] MEDS: ASPirin-EC 81 mg tab PO SCH ×2 (02:30→21:52)
[2021-08-31] MEDS: ACCU-CHEK COMFORT CURVE STRIP VI SCH ×4 (04:32→21:53)
[2021-08-31] MEDS: InsuLIN REG 1unit/0.01ml Soln (100units/ml) SC SCH ×4 (04:33→22:02)
[2021-08-31] MEDS: FERROUS SULFATE 325mg EC TAB PO SCH ×3 (04:41→21:52)
[2021-08-31 05:58] VITALS: BP 130/65
[2021-08-31 08:00] VITALS: BP 135/75
[2021-08-31] MEDS: PRAVASTATIN SODIUM 20 MG TAB PO SCH (10:00)
[2021-08-31] MEDS: CHOLECALCIFEROL (VITD3) 2,000 UNIT CAP/TAB PO SCH (10:00)
[2021-08-31] MEDS: ENOXAPARIN SOD 40 MG/0.4 ML SYRINGE SC SCH (10:00)
[2021-08-31] MEDS: METOPROLOL TARTRATE 25 MG TAB PO SCH ×2 (10:00→21:53)
[2021-08-31] MEDS: PIOGLITAZONE HYDROCHLORIDE 30 MG TAB PO SCH (10:00)
[2021-08-31] MEDS: CITALOPRAM HYDROBR 20 MG TAB PO SCH (10:00)
[2021-08-31] MEDS: [UNRECOGNIZED DRUG - OTHER] PO SCH (10:00)
[2021-08-31] MEDS: amLODIPine BESYLATE 5 MG TAB PO SCH (10:00)
[2021-08-31] MEDS: GLIPIZIDE 5 MG PO SCH (10:00)
[2021-08-31 11:36] VITALS: BP 118/76
[2021-08-31] MEDS: LORazepam 0.5 MG TAB PO PRN (12:20)
[2021-08-31 17:09] VITALS: BP 115/60
[2021-08-31] MEDS: SERTRALINE HCL 50 MG TAB PO SCH (17:14)
[2021-08-31 21:46] VITALS: BP 120/65
[2021-08-31] MEDS: clonazePAM 0.5 MG TAB PO SCH (21:52)
[2021-09-01 05:00] VITALS: BP 111/64
[2021-09-01] MEDS: FERROUS SULFATE 325mg EC TAB PO SCH (06:00)
[2021-09-01] MEDS: ACCU-CHEK COMFORT CURVE STRIP VI SCH ×2 (06:01→11:30)
[2021-09-01] MEDS: InsuLIN REG 1unit/0.01ml Soln (100units/ml) SC SCH ×2 (06:01→11:30)
[2021-09-01 09:00] VITALS: BP 128/69
[2021-09-01] MEDS: GLIPIZIDE 5 MG PO SCH (09:32)
[2021-09-01] MEDS: [UNRECOGNIZED DRUG - OTHER] PO SCH (09:32)
[2021-09-01] MEDS ORDERED: SERT25TA84 PO ×2 (09:36→10:37)
[2021-09-01] MEDS: PRAVASTATIN SODIUM 20 MG TAB PO SCH (10:00)
[2021-09-01] MEDS: SERTRALINE HCL 50 MG TAB PO SCH (10:00)
[2021-09-01] MEDS: amLODIPine BESYLATE 5 MG TAB PO SCH (10:00)
[2021-09-01] MEDS: ENOXAPARIN SOD 40 MG/0.4 ML SYRINGE SC SCH (10:00)
[2021-09-01] MEDS: PIOGLITAZONE HYDROCHLORIDE 30 MG TAB PO SCH (10:00)
[2021-09-01] MEDS: clonazePAM 0.5 MG TAB PO SCH (10:00)
[2021-09-01] MEDS: CHOLECALCIFEROL (VITD3) 2,000 UNIT CAP/TAB PO SCH (10:00)
[2021-09-01] MEDS: METOPROLOL TARTRATE 25 MG TAB PO SCH (10:00)
[2021-09-01] MEDS: CITALOPRAM HYDROBR 20 MG TAB PO SCH (10:00)
[2021-09-01] MEDS ORDERED: CLON0.5T10 PO (10:37)
== END 2021-09-01 13:00 | disposition home or self-care (01) | DRG 683 ==
LOC: EDBD 17:22 → ER 17:22 → OVERFLOW 21:39 → WEST WING 23:11
PROVIDERS: ADMIT Internal Medicine; ATTEND Family Medicine
DX: N17.9 Acute kidney failure, unspecified (principal); I69.354 Hemiplegia and hemiparesis following cerebral infarction affecting left non-dominant side; F41.9 Anxiety disorder, unspecified; E11.9 Type 2 diabetes mellitus without complications; Z20.822 Contact with and (suspected) exposure to COVID-19; E78.00 Pure hypercholesterolemia, unspecified; I10 Essential (primary) hypertension; Z79.899 Other long term (current) drug therapy; Z83.3 Family history of diabetes mellitus
CPT/HCPCS: 36415; 71045; 80048; 80053; 82570; 82962; 83036; 84156; 84300; 84484; 85025; 87426; 87493; 96361; 96372; 96374; G0378; J1815

== ENCOUNTER → 2022-03-10 | Outpatient (CLI) | payer MEDICARE ==
[~2022-03-10] MED LIST changes: -METF-370 PO
== END | disposition home or self-care (01) ==
LOC: LAB 15:17
PROVIDERS: ATTEND Internal Medicine Gastroenterology
DX: K29.70 Gastritis, unspecified, without bleeding (principal); K58.9 Irritable bowel syndrome, unspecified; A04.72 Enterocolitis due to Clostridium difficile, not specified as recurrent
CPT/HCPCS: 87493

== ENCOUNTER → 2022-05-20 | Outpatient (CLI) | payer MEDICARE | END | disposition home or self-care (01) | LOC: LAB 08:39 | PROVIDERS: ATTEND Internal Medicine Gastroenterology | DX: A04.72 Enterocolitis due to Clostridium difficile, not specified as recurrent (principal); K58.9 Irritable bowel syndrome, unspecified | CPT/HCPCS: 87493 ==

== ENCOUNTER → 2022-05-20 | Outpatient (CLI) | payer MEDICARE ==
[2022-05-20 09:02] LABS: Basophils # (auto) 0 10 ^3/uL (0-0.2); Basophils % (auto) 0.9 % (0.0-2.0); Eosinophils # (auto) 0 10 ^3/uL (0-0.8); Eosinophils % (auto) 1.5 % (0.0-7.0); Lymphocytes # (auto) 0.7 10 ^3/uL (0.4-5.4); Lymphocytes % (auto) 21.8 % (10.0-50.0); Mean Corpuscular Hemoglobin 30.4 pg (28.0-32.0); Mean Corpuscular Hgb Conc. 32.6 g/dL (32.0-36.0); Mean Corpuscular Volume 93.4 fL (80.0-100.0); Monocytes # (auto) 0.2 10 ^3/uL (0-1.3); Monocytes % (auto) 5.7 % (0.0-12.0); Neutrophils # (auto) 2.2 10 ^3/uL (1.6-8.6); Neutrophils % (auto) 70.1 % (37.0-80.0); Red Blood Cells 4.29 10^6/uL (4.5-5.90); Red Cell Distribution Width 13.8 % (11.8-14.3); Urine Bacteria NONE SEEN /hpf (None Seen); Urine Blood Negative /uL (Negative); Urine Hyaline Cast FEW /lpf (0 - 2); Urine Mucus FEW (None Seen); Urine Specific Gravity 1.022 (1.001-1.035); Urine WBC 2 /hpf (0 - 3); White Blood Cell 3.2 10^3/uL (4.4-10.8)
[2022-05-20 09:54] LABS: Albumin 3.4 g/dL (3.4-5.0); BUN/Creatinine Ratio 15.3; Bilirubin, Total 0.3 mg/dL (0.2-1.0); Calcium 8.9 mg/dL (8.5-10.1); Potassium 4.8 mmol/L (3.5-5.1); Total Protein 6.6 g/dL (6.4-8.2)
[2022-05-20 10:18] LABS: Free T4 (Free Thyroxine) 0.98 ng/dL (0.89-1.76); Prostate Specific Antigen 0.81 ng/mL (0.0-4.0)
[2022-05-20 13:26] LABS: Micro Albumin 15.7 mg/L (0-30.0)
== END | disposition home or self-care (01) ==
LOC: LAB 08:37
PROVIDERS: ATTEND Internal Medicine
DX: I10 Essential (primary) hypertension (principal); E11.21 Type 2 diabetes mellitus with diabetic nephropathy
CPT/HCPCS: 36415; 80053; 80061; 81001; 82043; 82570; 82607; 83036; 84153; 84439; 84443; 85025; 85652

== ENCOUNTER → 2022-06-17 | Outpatient (CLI) | payer MEDICARE ==
[2022-06-17 09:20] LABS: INR 0.99 (0.9-1.15)
[2022-06-17 09:44] LABS: Alanine Aminotransferase 48 U/L (16-61); Aspartate Aminotransferase 23 U/L (15-37)
== END | disposition home or self-care (01) ==
LOC: LAB 08:21
PROVIDERS: ATTEND Internal Medicine
DX: R06.09 Other forms of dyspnea (principal); I10 Essential (primary) hypertension; E11.9 Type 2 diabetes mellitus without complications; Z51.81 Encounter for therapeutic drug level monitoring
CPT/HCPCS: 36415; 83880; 84450; 84460; 85379; 85610

== ENCOUNTER → 2022-11-17 | Outpatient (CLI) | payer MEDICARE ==
[2022-11-17 08:52] LABS: Basophils # (auto) 0 10 ^3/uL (0-0.2); Basophils % (auto) 1.1 % (0.0-2.0); Eosinophils # (auto) 0.1 10 ^3/uL (0-0.8); Eosinophils % (auto) 1.6 % (0.0-7.0); Hematocrit 38.9 % (41.0-53.0); Hemoglobin 13.3 g/dL (13.5-17.5); Lymphocytes # (auto) 1.1 10 ^3/uL (0.4-5.4); Lymphocytes % (auto) 26.3 % (10.0-50.0); Mean Corpuscular Hemoglobin 31.2 pg (28.0-32.0); Mean Corpuscular Hgb Conc. 34.2 g/dL (32.0-36.0); Mean Corpuscular Volume 91.2 fL (80.0-100.0); Monocytes # (auto) 0.2 10 ^3/uL (0-1.3); Monocytes % (auto) 5.7 % (0.0-12.0); Neutrophils # (auto) 2.7 10 ^3/uL (1.6-8.6); Neutrophils % (auto) 65.3 % (37.0-80.0); Nucleated Red Blood Cells % 0.1 %; Red Blood Cells 4.27 10^6/uL (4.5-5.90); Red Cell Distribution Width 13.9 % (11.8-14.3); White Blood Cell 4.2 10^3/uL (4.4-10.8)
[2022-11-17 10:45] LABS: Potassium 4.4 mmol/L (3.5-5.1)
[2022-11-17 11:12] LABS: Albumin 3.5 g/dL (3.4-5.0); BUN/Creatinine Ratio 25.4 (10.0-20.0); Bilirubin, Total 0.4 mg/dL (0.2-1.0); Calcium 8.5 mg/dL (8.5-10.1); Total Protein 6.6 g/dL (6.4-8.2)
== END | disposition home or self-care (01) ==
LOC: LAB 08:23
PROVIDERS: ATTEND Internal Medicine
DX: E11.9 Type 2 diabetes mellitus without complications (principal); I10 Essential (primary) hypertension
CPT/HCPCS: 36415; 80053; 83036; 85025

== ENCOUNTER 2023-03-06 20:10 | Emergency (ER) | payer MEDICARE ==
[~2023-03-06] VITALS: Ht 162.6 cm; Wt 60.0 kg
[~2023-03-06 20:10] MED LIST changes: -AMLO-496 PO; +AMLO1TAB23 PO; -CLON0.5T10 PO; +CLON0.5T4 PO; -LISI-716 PO; +LISI10TA34 PO
[2023-03-06 21:10] LABS: Basophils # (auto) 0 10 ^3/uL (0-0.2); Basophils % (auto) 0.6 % (0.0-2.0); Eosinophils # (auto) 0.1 10 ^3/uL (0-0.8); Eosinophils % (auto) 0.9 % (0.0-7.0); Hematocrit 39.9 % (41.0-53.0); Hemoglobin 13.4 g/dL (13.5-17.5); Lymphocytes # (auto) 1.3 10 ^3/uL (0.4-5.4); Lymphocytes % (auto) 22.2 % (10.0-50.0); Mean Corpuscular Hgb Conc. 33.6 g/dL (32.0-36.0); Mean Corpuscular Volume 92.1 fL (80.0-100.0); Monocytes # (auto) 0.4 10 ^3/uL (0-1.3); Monocytes % (auto) 6.4 % (0.0-12.0); Neutrophils # (auto) 4.1 10 ^3/uL (1.6-8.6); Neutrophils % (auto) 69.9 % (37.0-80.0); Nucleated Red Blood Cells % 0.2 %; Red Blood Cells 4.33 10^6/uL (4.5-5.90); Red Cell Distribution Width 13.8 % (11.8-14.3); White Blood Cell 5.9 10^3/uL (4.4-10.8)
[2023-03-06 21:28] LABS: Alanine Aminotransferase 28 U/L (7-40); Alkaline Phosphatase 54 U/L (46-116); Aspartate Aminotransferase 17 U/L (13-40); BUN/Creatinine Ratio 26.9 (10.0-20.0); Bilirubin, Total 0.3 mg/dL (0.2-1.0); Blood Urea Nitrogen 39 mg/dL (9-23); Chloride 107 mmol/L (98-107); Glucose 259 mg/dL (74-106); Sodium 138 mmol/L (136-145); Total Protein 6.4 g/dL (5.7-8.2)
[2023-03-07 04:28] VITALS: BP 154/62; PULSE 64; RESP 18; TEMP 98.1; O2SAT 98
== END 2023-03-07 04:34 | disposition home or self-care (01) ==
LOC: ER 20:10 → EDBD 20:10 → ER 03-07 04:34
DX: R53.1 Weakness (principal); E86.0 Dehydration; F41.9 Anxiety disorder, unspecified; R42 Dizziness and giddiness; E11.22 Type 2 diabetes mellitus with diabetic chronic kidney disease; I12.9 Hypertensive chronic kidney disease with stage 1 through stage 4 chronic kidney disease, or unspecified chronic kidney disease; N18.9 Chronic kidney disease, unspecified; E78.5 Hyperlipidemia, unspecified; Z86.73 Personal history of transient ischemic attack (TIA), and cerebral infarction without residual deficits
CPT/HCPCS: 36415; 71045; 80053; 83880; 84484; 85025; 93005

== ENCOUNTER → 2023-12-07 | Outpatient (CLI) | payer MEDICARE ==
[~2023-12-07] MED LIST changes: +NAP500T PO; +TAMS0.4C36 PO
[2023-12-07 09:19] LABS: Alanine Aminotransferase 68 U/L (7-40); Cholesterol 149 mg/dL (< 200); LDL Cholesterol 88 mg/dL (< 100); Triglycerides 58 mg/dL (< 150)
[2023-12-07 09:20] LABS: Aspartate Aminotransferase 34 U/L (13-40); HDL Cholesterol 52 mg/dL (40-59)
== END | disposition home or self-care (01) ==
LOC: LAB 07:43
PROVIDERS: ATTEND Internal Medicine
DX: E11.9 Type 2 diabetes mellitus without complications (principal); E78.5 Hyperlipidemia, unspecified
CPT/HCPCS: 36415; 80061; 83036; 84450; 84460

== ENCOUNTER → 2024-02-15 | Outpatient (CLI) | payer MEDICARE ==
[~2024-02-15] MED LIST changes: -TAMS0.4C36 PO; +TAMS0.4C39 PO
[2024-02-15 07:22] LABS: Basophils # (auto) 0 10 ^3/uL (0-0.2); Basophils % (auto) 0.7 % (0.0-2.0); Eosinophils # (auto) 0.1 10 ^3/uL (0-0.8); Eosinophils % (auto) 2.6 % (0.0-7.0); Hematocrit 41.5 % (41.0-53.0); Hemoglobin 14.1 g/dL (13.5-17.5); Lymphocytes # (auto) 0.9 10 ^3/uL (0.4-5.4); Lymphocytes % (auto) 24.2 % (10.0-50.0); Mean Corpuscular Hemoglobin 31.3 pg (28.0-32.0); Mean Corpuscular Volume 92.1 fL (80.0-100.0); Monocytes # (auto) 0.3 10 ^3/uL (0-1.3); Monocytes % (auto) 7.3 % (0.0-12.0); Neutrophils # (auto) 2.5 10 ^3/uL (1.6-8.6); Neutrophils % (auto) 65.2 % (37.0-80.0); Platelet Count (auto) 130 10^3/uL (140-450); Red Blood Cells 4.51 10^6/uL (4.5-5.90); Red Cell Distribution Width 13.9 % (11.8-14.3); White Blood Cell 3.9 10^3/uL (4.4-10.8)
[2024-02-15 08:03] LABS: Alanine Aminotransferase 55 U/L (7-40); Albumin 3.8 g/dL (3.2-4.8); Alkaline Phosphatase 62 U/L (46-116); Anion Gap 2 (5-15); Aspartate Aminotransferase 26 U/L (13-40); BUN/Creatinine Ratio 14.6 (10.0-20.0); Bilirubin, Total 0.5 mg/dL (0.2-1.0); Blood Urea Nitrogen 19 mg/dL (9-23); Calcium 9.4 mg/dL (8.7-10.4); Carbon Dioxide 29 mmol/L (20-30); Chloride 108 mmol/L (98-107); Cholesterol 139 mg/dL (< 200); Glucose 152 mg/dL (74-106); HDL Cholesterol 47 mg/dL (40-59); LDL Cholesterol 78 mg/dL (< 100); Potassium 3.6 mmol/L (3.5-5.1); Sodium 139 mmol/L (136-145); Total Protein 6.4 g/dL (5.7-8.2); Triglycerides 79 mg/dL (< 150)
== END | disposition home or self-care (01) ==
LOC: LAB 06:37
PROVIDERS: ATTEND Internal Medicine Gastroenterology
DX: R10.9 Unspecified abdominal pain (principal); Z79.899 Other long term (current) drug therapy
CPT/HCPCS: 36415; 80053; 80061; 85025; 87493